=== PATIENT | female | born 1955 | race African-American/Black ===

== ENCOUNTER 2018-04-17 09:38 | Inpatient (IN) | payer MEDICARE, BC ==
[~2018-04-17] VITALS: Ht 167.6 cm; Wt 109.8 kg
[2018-04-17] MEDS ORDERED: SODIUM CHLORIDE 0.9% 1,000 ML IV ONE (17:02)
[2018-04-17 17:58] LABS: BASOPHILS % 0.6 % (0.0-2.0); EOSINOPHILS % 1.9 % (0.0-5.0); HEMATOCRIT. 32.1 % (36.0-48.0); HEMOGLOBIN. 10.3 g/dL (12.0-16.0); LYMPHOCYTES % 39.8 % (20.0-50.0); MEAN CORPUSCULAR HEMOGLOBIN 27.1 pg (28.0-32.0); MEAN CORPUSCULAR VOLUME 84.1 fL (81.0-99.0); MEAN PLATELET VOLUME 9.4 fl (7.4-10.4); MONOCYTES % 6.3 % (2.0-8.0); NEUTROPHILS % 51.4 % (40.0-76.0); PLATELET 224 x1000/uL (130-400); RED BLOOD CELL COUNT 3.82 mill/uL (4.2-5.4); RED CELL DISTRIBUTION WIDTH 16.1 % (11.6-14.6)
[2018-04-17 18:01] LABS: CHLORIDE 108 mEq/L (98-107)
[2018-04-17 18:06] LABS: ETHANOL BLOOD < 10 mg/dL
[2018-04-17 18:36] LABS: CLARITY URINE CLEAR (CLEAR); COLOR URINE YELLOW (YELLOW); KETONES URINE NEGATIVE (NEGATIVE); LEUKOCYTE ESTERASE URINE TRACE (NEGATIVE); NITRITE URINE NEGATIVE (NEGATIVE); OCCULT BLOOD URINE NEGATIVE (NEGATIVE); PROTEIN URINE NEGATIVE (NEGATIVE); SPECIFIC GRAVITY URINE 1.013 (1.005-1.030); UROBILINOGEN URINE 0.2 E.U./dL (0.2-1.0)
[2018-04-17 18:47] LABS: *AMPHETAMINES SCREEN URINE NEGATIVE (NEGATIVE); *BARBITURATES SCREEN URINE NEGATIVE (NEGATIVE); *COCAINE SCREEN URINE NEGATIVE (NEGATIVE); METHADONE URINE SCREEN NEGATIVE (NEGATIVE); OPIATES URINE SCREEN NEGATIVE (NEGATIVE)
[2018-04-17 18:48] LABS: CANNABINOID URINE SCREEN NEGATIVE (NEGATIVE); PHENCYCLIDINE URINE SCREEN NEGATIVE (NEGATIVE)
[2018-04-17 18:49] LABS: *BENZODIAZEPINES SCREEN URINE NEGATIVE (NEGATIVE)
[2018-04-17] MEDS ORDERED: MAGNESIUM/ALUMINUM HYDROXIDE/SIMETHICONE 30ML UDC PO PRN (19:30)
[2018-04-17] MEDS ORDERED: ACETAMINOPHEN 650MG SUPP PR PRN (19:30)
[2018-04-17] MEDS ORDERED: DIPHENHYDRAMINE 50MG/ML VIAL IV PRN (19:30)
[2018-04-17] MEDS ORDERED: CLONIDINE 0.1MG TABLET PO PRN (19:30)
[2018-04-17] MEDS ORDERED: GUAIFENESIN 200MG/10ML SUGAR FREE UDC PO PRN (19:30)
[2018-04-17] MEDS ORDERED: NA PHOS,M-B/NA PHOS,DI-BA ENEMA 118ML PR PRN (19:30)
[2018-04-17] MEDS ORDERED: CEPHALEXIN 250MG CAPSULE PO ONE (19:30)
[2018-04-17] MEDS ORDERED: ONDANSETRON HCL 4MG/2ML INJ IV PRN (19:30)
[2018-04-17] MEDS ORDERED: IPRATROPIUM/ALBUTEROL 0.5-3(2.5)MG/3ML NEB INH PRN (19:30)
[2018-04-17] MEDS ORDERED: ACETAMINOPHEN 650MG/20.3ML UDC GT PRN (19:30)
[2018-04-17] MEDS ORDERED: ACETAMINOPHEN 325MG TABLET PO PRN (19:30)
[2018-04-17] MEDS ORDERED: DOCUSATE SODIUM 100MG CAPSULE PO PRN (19:30)
[2018-04-17 22:50] VITALS: BP 119/66
[2018-04-17 22:55] VITALS: BP 119/66
[2018-04-17 22:59] LABS: CREATINE KINASE 97 IU/L (26-192)
[2018-04-17 23:00] LABS: CREATINE KINASE MB FRACTION 1.3 ng/mL (0.5-3.6)
[2018-04-18] MEDS ORDERED: LEVOFLOXACIN 500MG PREMIX 100 ML IV NR (01:00)
[2018-04-18] MEDS: SODIUM CHLORIDE 0.9% 1,000 ML IV SCH ×2 (01:11→17:42)
[2018-04-18] MEDS: SODIUM CHLORIDE 0.9% INJ 3ML FLUSH IVF SCH ×3 (01:12→21:30)
[2018-04-18] MEDS ORDERED: ACETAMINOPHEN 650MG/20.3ML UDC PO PRN (01:30)
[2018-04-18 04:00] VITALS: BP 98/44
[2018-04-18 07:02] LABS: BASOPHILS % 0.6 % (0.0-2.0); EOSINOPHILS % 2.2 % (0.0-5.0); HEMATOCRIT. 30.1 % (36.0-48.0); LYMPHOCYTES % 37.2 % (20.0-50.0); MEAN CORPUSCULAR HEMOGLOBIN 27.8 pg (28.0-32.0); MEAN CORPUSCULAR VOLUME 83.9 fL (81.0-99.0); PLATELET 195 x1000/uL (130-400); RED BLOOD CELL COUNT 3.59 mill/uL (4.2-5.4); RED CELL DISTRIBUTION WIDTH 15.8 % (11.6-14.6)
[2018-04-18 07:29] LABS: CHLORIDE 109 mEq/L (98-107)
[2018-04-18 07:38] LABS: LDL CHOLESTEROL 72 mg/dL (5-100)
[2018-04-18 07:39] LABS: CREATINE KINASE 103 IU/L (26-192); HDL CHOLESTEROL 40 mg/dL (40-59)
[2018-04-18 07:41] LABS: CREATINE KINASE MB FRACTION 1.5 ng/mL (0.5-3.6)
[2018-04-18] MEDS ORDERED: AMLO5TAB88 MT (07:49)
[2018-04-18] MEDS ORDERED: CHOL500063 MT (07:49)
[2018-04-18] MEDS ORDERED: CLON1PAT11 TP (07:49)
[2018-04-18] MEDS ORDERED: LISI-604 MT (07:49)
[2018-04-18] MEDS ORDERED: ATOR20TA65 MT (07:49)
[2018-04-18] MEDS ORDERED: ASPI-1159 MT (07:49)
[2018-04-18] MEDS ORDERED: HYDR25TA MT (07:49)
[2018-04-18] MEDS ORDERED: METO100T16 MT (07:49)
[2018-04-18 08:00] VITALS: BP 110/51
[2018-04-18] MEDS: ENOXAPARIN 40MG/0.4ML SYR SUBCUT SCH (09:00)
[2018-04-18 12:00] VITALS: BP 112/62
[2018-04-18] MEDS ORDERED: POTASSIUM CHLORIDE 20MEQ TABLET SR PO SCH (14:45)
[2018-04-18 16:00] VITALS: BP 115/78
[2018-04-18 19:53] VITALS: BP 158/80
[2018-04-18] MEDS ORDERED: LEVOFLOXACIN 500MG PREMIX 100 ML IV SCH (21:00)
[2018-04-19] VITALS (7 sets, daily range): BP systolic 126–145; BP diastolic 67–86
[2018-04-19] MEDS: SODIUM CHLORIDE 0.9% INJ 3ML FLUSH IVF SCH (06:08)
[2018-04-19] MEDS: ENOXAPARIN 40MG/0.4ML SYR SUBCUT SCH (09:35)
[2018-04-19] MEDS ORDERED: LEVO500T2 MT (11:45)
[2018-04-19] MEDS ORDERED: POTASSIUM CHLORIDE 20MEQ TABLET SR PO NR (12:04)
[2018-04-19 14:29] LABS: CHLORIDE 111 mEq/L (98-107)
[2018-04-19 14:33] LABS: BASOPHILS % 0.4 % (0.0-2.0); EOSINOPHILS % 1.8 % (0.0-5.0); HEMATOCRIT. 30.1 % (36.0-48.0); HEMOGLOBIN. 9.8 g/dL (12.0-16.0); LYMPHOCYTES % 37.2 % (20.0-50.0); MEAN CORPUSCULAR HEMOGLOBIN 27.5 pg (28.0-32.0); MEAN CORPUSCULAR VOLUME 84.3 fL (81.0-99.0); MEAN PLATELET VOLUME 9.4 fl (7.4-10.4); MONOCYTES % 7.6 % (2.0-8.0); PLATELET 188 x1000/uL (130-400); RED BLOOD CELL COUNT 3.57 mill/uL (4.2-5.4); RED CELL DISTRIBUTION WIDTH 15.9 % (11.6-14.6)
[2018-04-21 18:14] LABS: VITAMIN B12 SERUM 356 pg/mL (211-911)
== END 2018-04-19 17:15 | disposition home health service (06) | DRG 70 ==
LOC: ER 12:17 → 6WST 19:24 → ENRESERV 21:51
PROVIDERS: ADMIT Family Medicine; ATTEND Family Medicine
DX: G93.41 Metabolic encephalopathy (principal); N17.0 Acute kidney failure with tubular necrosis; F05 Delirium due to known physiological condition; N39.0 Urinary tract infection, site not specified; E44.1 Mild protein-calorie malnutrition; I69.354 Hemiplegia and hemiparesis following cerebral infarction affecting left non-dominant side; E87.6 Hypokalemia; E66.01 Morbid (severe) obesity due to excess calories; G47.30 Sleep apnea, unspecified; I10 Essential (primary) hypertension; L89.159 Pressure ulcer of sacral region, unspecified stage; Z68.39 Body mass index [BMI] 39.0-39.9, adult; Z99.81 Dependence on supplemental oxygen
CPT/HCPCS: 36415; 70551; 71045; 80061; 80305; 82550; 82553; 82607; 84484; 87077; 87186; 93970; 96360; 96361; 97162; 97166; 99285; G0482; J1650; J1956; J7030